=== PATIENT | female | born 1945 | race Caucasian/White ===

== ENCOUNTER 2021-04-16 10:29 | Inpatient (IN) | payer MEDICARE ==
[2021-04-16] MEDS ORDERED: Labetalol HCl 100 MG/20 ML VIAL ONE (10:59)
[2021-04-16] MEDS ORDERED: hydrALAZINE 20 MG/ML VIAL SLOW IVP PRN (11:15)
[2021-04-16 11:19] LABS: #Monocytes 0.4 thou/uL (0.11-0.59); #Neutrophils 5.2 thou/uL (1.40-6.50); %Eosinophils 0.7 % (0.0-10.0); %Lymphocytes 15.3 % (21.0-51.0); %Monocytes 5.9 % (0.0-10.0); %Neutrophils 78.1 % (42.0-75.0); Hemoglobin 14.7 g/dL (12.0-16.0); Mean Corpuscular HGB CONC 33.8 g/dL (32.0-36.0); Mean Corpuscular Volume 91.8 fL (78.0-98.0); Mean Platelet Volume 6.8 fL (7.4-10.4); Platelet Count 374 thou/uL (130-400); Red Blood Cell (RBC) Count 4.73 mill/uL (4.20-5.40); White Blood Cell (WBC) Count 6.7 thou/uL (4.8-10.8)
[2021-04-16 11:32] LABS: ALT (SGPT) 36 U/L (8-55); AST (SGOT) 28 U/L (5-34); Albumin 4.4 g/dL (3.4-4.8); Alkaline Phosphatase 109 U/L (40-110); Anion Gap 15 mmol/L (10-20); BUN (Urea Nitrogen) 13 mg/dL (9.8-20.1); Bilirubin, Total 0.4 mg/dL (0.2-1.2); Calc. Creatinine Clearance 0 mL/min (70-130); Calcium 9.9 mg/dL (7.8-10.44); Carbon Dioxide 23 mmol/L (23-31); Chloride 108 mmol/L (98-107); Globulin 2.7 g/dL (2.4-3.5); Glucose 102 mg/dL (83-110); Protein, Total 7.1 g/dL (5.8-8.1); Sodium 142 mmol/L (136-145)
[2021-04-16] MEDS ORDERED: Calcium Carbonate 500 MG ChewTAB PO PRN (11:44)
[2021-04-16] MEDS ORDERED: Senokot S 8.6-50 MG TAB PO PRN (11:44)
[2021-04-16] MEDS ORDERED: Calcium Carbonate 500 MG ChewTAB ONE (18:55)
[2021-04-16 20:46] VITALS: BMI 26.9
[2021-04-16] MEDS ORDERED: Famotidine 20 MG TAB PO SCH (21:00)
[2021-04-16] MEDS: Atorvastatin Calcium 40 MG TAB PO SCH (21:54)
[2021-04-16] MEDS: Famotidine 20 MG TAB PO SCH (21:55)
[2021-04-16] MEDS: Acetaminophen 325 MG TAB PO PRN (21:55)
[2021-04-17 06:22] LABS: #Eosinphils 0.2 thou/uL (0.0-0.7); #Lymphocytes 1.3 thou/uL (1.20-3.40); #Monocytes 0.7 thou/uL (0.11-0.59); #Neutrophils 5.5 thou/uL (1.40-6.50); %Basophils 0.4 % (0.0-1.0); %Eosinophils 2.4 % (0.0-10.0); %Lymphocytes 16.9 % (21.0-51.0); %Monocytes 8.6 % (0.0-10.0); %Neutrophils 71.7 % (42.0-75.0); Hemoglobin 14.2 g/dL (12.0-16.0); Mean Corpuscular HGB CONC 33.6 g/dL (32.0-36.0); Mean Corpuscular Hemoglobin 30.4 pg (27.0-31.0); Mean Corpuscular Volume 90.4 fL (78.0-98.0); Mean Platelet Volume 8.2 fL (7.4-10.4); Platelet Count 292 thou/uL (130-400); RBC Distribution Width 11.9 % (11.5-14.5); Red Blood Cell (RBC) Count 4.69 mill/uL (4.20-5.40); White Blood Cell (WBC) Count 7.7 thou/uL (4.8-10.8)
[2021-04-17 06:29] LABS: Hemoglobin A1c 5.6 % (4.0-6.0)
[2021-04-17 06:45] LABS: Anion Gap 15 mmol/L (10-20); BUN (Urea Nitrogen) 13 mg/dL (9.8-20.1); Calc. Creatinine Clearance 71 mL/min (70-130); Calcium 9.8 mg/dL (7.8-10.44); Carbon Dioxide 24 mmol/L (23-31); Cardiac Risk 3.9 (Less than 4.5); Chloride 105 mmol/L (98-107); Cholesterol 239 mg/dl (< 200 Desired); Glucose 99 mg/dL (83-110); HDL Cholesterol 61 mg/dL (>60 Neg Risk); LDL Cholesterol, Calculated 160 mg/dL; Magnesium 2.1 mg/dL (1.6-2.6); Potassium 3.4 mmol/L (3.5-5.1); Sodium 141 mmol/L (136-145); Triglycerides 90 mg/dL (Less than 150)
[2021-04-17 07:12] LABS: Thyroid Stimulating Hormone 0.8551 uIU/mL (0.35-4.94)
[2021-04-17] MEDS ORDERED: FLU VACC QS2021-22(65YR UP)/PF 240 MCG/0.7 ML SYRINGE IM ONE (09:00)
[2021-04-17] MEDS ORDERED: Amlodipine 5 MG TAB PO SCH (10:00)
[2021-04-17] MEDS: Enoxaparin Sodium 40 MG/0.4 ML SYRINGE SC SCH (10:16)
[2021-04-17] MEDS: Famotidine 20 MG TAB PO SCH ×2 (12:28→20:09)
[2021-04-17] MEDS: Aspirin 81 mg Enteric Coated Tablet PO SCH (12:28)
[2021-04-17] MEDS ORDERED: Hydrochlorothiazide 25 MG TAB PO SCH (12:45)
[2021-04-17] MEDS ORDERED: Azelastine 137 MCG/Spray 30 ML NS PRN (13:30)
[2021-04-17] MEDS: Ondansetron ODT 4 MG TAB PO PRN (15:56)
[2021-04-17] MEDS: Atorvastatin Calcium 40 MG TAB PO SCH (20:06)
[2021-04-17] MEDS: Acetaminophen 325 MG TAB PO PRN (20:35)
[2021-04-17] MEDS ORDERED: Losartan 25 MG TAB PO SCH (21:00)
[2021-04-17] MEDS ORDERED: Latanoprost 0.005% Ophth Soln 2.5 ml Bottle EA EYE SCH (21:00)
[2021-04-17] MEDS ORDERED: rOPINIRole HCl 0.5 MG TAB PO PRN (21:00)
[2021-04-18 05:57] LABS: #Eosinphils 0.1 thou/uL (0.0-0.7); #Lymphocytes 0.8 thou/uL (1.20-3.40); #Monocytes 0.7 thou/uL (0.11-0.59); #Neutrophils 3.4 thou/uL (1.40-6.50); %Basophils 0.9 % (0.0-1.0); %Eosinophils 1.5 % (0.0-10.0); %Lymphocytes 16.3 % (21.0-51.0); %Monocytes 13.9 % (0.0-10.0); %Neutrophils 67.4 % (42.0-75.0); Hemoglobin 14.4 g/dL (12.0-16.0); Mean Corpuscular HGB CONC 33.3 g/dL (32.0-36.0); Mean Corpuscular Hemoglobin 30.2 pg (27.0-31.0); Mean Corpuscular Volume 90.9 fL (78.0-98.0); Platelet Count 321 thou/uL (130-400); RBC Distribution Width 11.8 % (11.5-14.5); Red Blood Cell (RBC) Count 4.77 mill/uL (4.20-5.40)
[2021-04-18 06:17] LABS: Anion Gap 12 mmol/L (10-20); BUN (Urea Nitrogen) 12 mg/dL (9.8-20.1); Calc. Creatinine Clearance 66 mL/min (70-130); Calcium 9.4 mg/dL (7.8-10.44); Carbon Dioxide 27 mmol/L (23-31); Chloride 101 mmol/L (98-107); Glucose 99 mg/dL (83-110); Potassium 3.3 mmol/L (3.5-5.1); Sodium 137 mmol/L (136-145)
[2021-04-18] MEDS ORDERED: Potassium Chloride 20 MEQ TAB PO SCH (08:00)
[2021-04-18 08:16] VITALS: TEMP 98.1
[2021-04-18] MEDS ORDERED: Hydrochlorothiazide 25 MG TAB PO SCH (09:00)
[2021-04-18] MEDS ORDERED: Amlodipine 5 MG TAB PO SCH (09:00)
[2021-04-18] MEDS ORDERED: Fluticasone Propionate Nasal Spray 16 gm Bottle NASAL SCH (09:00)
[2021-04-18] MEDS: Enoxaparin Sodium 40 MG/0.4 ML SYRINGE SC SCH (09:45)
[2021-04-18] MEDS: Ondansetron ODT 4 MG TAB PO PRN ×2 (09:45→15:15)
[2021-04-18] MEDS: Aspirin 81 mg Enteric Coated Tablet PO SCH (09:46)
[2021-04-18 12:22] VITALS: BP 139/80
[2021-04-18] MEDS: Famotidine 20 MG TAB PO SCH (15:14)
== END 2021-04-18 15:28 | disposition home or self-care (01) | DRG 65 ==
LOC: ERS 10:29 → ERHOLD 11:19 → OBSVTOIN 15:15 → NEURO 20:02
PROVIDERS: ADMIT Internal Medicine; ATTEND Internal Medicine
DX: I63.89 Other cerebral infarction (principal); G81.91 Hemiplegia, unspecified affecting right dominant side; E78.5 Hyperlipidemia, unspecified; I10 Essential (primary) hypertension; G25.81 Restless legs syndrome; H40.9 Unspecified glaucoma; K21.9 Gastro-esophageal reflux disease without esophagitis; J30.9 Allergic rhinitis, unspecified; I16.0 Hypertensive urgency; R20.2 Paresthesia of skin; R29.701 NIHSS score 1; Z90.710 Acquired absence of both cervix and uterus; Z79.899 Other long term (current) drug therapy
CPT/HCPCS: 36415; 70551; 74230; 80048; 80053; 80061; 82607; 82746; 83036; 83735; 84443; 84484; 85025; 93005; 93306; 93880; J1650; Q0162

== ENCOUNTER 2022-12-09 12:47 | Inpatient (IN) | payer MEDICARE ==
[~2022-12-09 12:47] MED LIST: Iopamidol-370 76% 500 ML MDV (1 ML CHARGE) ONE
[2022-12-09 13:23] LABS: #Monocytes 0.6 thou/uL (0.11-0.59); #Neutrophils 7.5 thou/uL (1.40-6.50); %Basophils 0.3 % (0.0-1.0); %Eosinophils 0.3 % (0.0-10.0); %Lymphocytes 14.6 % (21.0-51.0); %Monocytes 6.3 % (0.0-10.0); Hematocrit 44.3 % (36.0-47.0); Hemoglobin 14.2 g/dL (12.0-16.0); Mean Corpuscular HGB CONC 32.1 g/dL (32.0-36.0); Mean Corpuscular Hemoglobin 29.6 pg (27.0-31.0); Mean Corpuscular Volume 92.3 fl (78.0-98.0); Mean Platelet Volume 9.3 fL (7.4-10.4); Platelet Count 311 10x3/uL (130-400); RBC Distribution Width 12.7 % (11.5-14.5); White Blood Cell (WBC) Count 9.6 10x3/uL (4.8-10.8)
[2022-12-09 13:45] LABS: ALT (SGPT) 34 U/L (8-55); AST (SGOT) 26 U/L (5-34); Albumin 4.3 g/dL (3.4-4.8); Alkaline Phosphatase 110 U/L (40-110); Anion Gap 13 mmol/L (10-20); BUN (Urea Nitrogen) 14 mg/dL (9.8-20.1); Bilirubin, Total 0.6 mg/dL (0.2-1.2); Calc. Creatinine Clearance 0 mL/min (70-130); Calcium 9.6 mg/dL (7.8-10.44); Carbon Dioxide 24 mmol/L (23-31); Chloride 106 mmol/L (98-107); Estimated GFR 74; Globulin 2.8 g/dL (2.4-3.5); Glucose 108 mg/dL (83-110); Lipase 36 U/L (8-78); Potassium 3.8 mmol/L (3.5-5.1); Protein, Total 7.1 g/dL (5.8-8.1); Sodium 139 mmol/L (136-145)
[2022-12-09 13:48] LABS: Troponin I Less than 0.010 ng/mL (< 0.028)
[2022-12-09] MEDS ORDERED: Ondansetron ODT 4 MG TAB PO PRN (15:30)
[2022-12-09] MEDS ORDERED: rOPINIRole HCl 0.5 MG TAB PO PRN (15:30)
[2022-12-09] MEDS ORDERED: Aspirin 325 MG TAB ONE (15:41)
[2022-12-09] MEDS ORDERED: Acetaminophen 325 MG TAB PO PRN (16:07)
[2022-12-09] MEDS ORDERED: Ondansetron PF 4 MG/2 ML Vial IVP PRN (16:07)
[2022-12-09] MEDS ORDERED: HYDROcodone/Acetaminophen 5/325 mg Tablet PO PRN (16:22)
[2022-12-09] MEDS ORDERED: Mag-Al 1200 mg/1200 mg/30 ML UDCUP PO PRN (16:22)
[2022-12-09] MEDS ORDERED: Labetalol HCl 100 MG/20 ML VIAL SLOW IVP PRN (17:48)
[2022-12-09 20:43] VITALS: BMI 28.0
[2022-12-09 20:53] LABS: Troponin I Less than 0.010 ng/mL (< 0.028)
[2022-12-09] MEDS: Atorvastatin Calcium 40 MG TAB PO SCH (22:42)
[2022-12-09] MEDS: Latanoprost 0.005% Ophth Soln 2.5 ml Bottle EA EYE SCH (22:42)
[2022-12-10 05:06] LABS: #Basophils 0.1 thou/uL (0.0-0.2); #Eosinphils 0.1 thou/uL (0.0-0.7); #Monocytes 0.6 thou/uL (0.11-0.59); #Neutrophils 3.3 thou/uL (1.40-6.50); %Basophils 0.9 % (0.0-1.0); %Eosinophils 2.1 % (0.0-10.0); %Lymphocytes 29.1 % (21.0-51.0); %Monocytes 9.9 % (0.0-10.0); %Neutrophils 57.5 % (42.0-75.0); Hematocrit 42.2 % (36.0-47.0); Hemoglobin 13.7 g/dL (12.0-16.0); Mean Corpuscular HGB CONC 32.5 g/dL (32.0-36.0); Mean Corpuscular Hemoglobin 29.5 pg (27.0-31.0); Mean Corpuscular Volume 90.8 fl (78.0-98.0); Mean Platelet Volume 9.7 fL (7.4-10.4); Platelet Count 312 10x3/uL (130-400); RBC Distribution Width 12.8 % (11.5-14.5); Red Blood Cell (RBC) Count 4.65 mill/uL (4.20-5.40); White Blood Cell (WBC) Count 5.8 10x3/uL (4.8-10.8)
[2022-12-10 05:31] LABS: Anion Gap 12 mmol/L (10-20); BUN (Urea Nitrogen) 13 mg/dL (9.8-20.1); Calc. Creatinine Clearance 69 mL/min (70-130); Calcium 9.4 mg/dL (7.8-10.44); Carbon Dioxide 23 mmol/L (23-31); Cardiac Risk 2.5 (Less than 4.5); Chloride 106 mmol/L (98-107); Cholesterol 160 mg/dl (< 200 Desired); Estimated GFR 82; Glucose 82 mg/dL (83-110); HDL Cholesterol 65 mg/dL (>60 Neg Risk); LDL Cholesterol, Calculated 83 mg/dL; Potassium 3.6 mmol/L (3.5-5.1); Sodium 137 mmol/L (136-145); Triglycerides 62 mg/dL (Less than 150)
[2022-12-10 06:49] LABS: Bacteria/HPF None Seen HPF (None Seen); Bilirubin Negative (Negative); Blood, Urine Negative (Negative); CAUTI Indications for Culture Dysuria,urgency,freq; Clarity Clear (Clear); Glucose, Urine (Dipstick) Normal (Negative); Ketone, Urine Negative (Negative); Leukocyte Negative Leu/uL (Negative); Nitrite Negative (Negative); Protein, Urine (Dipstick) Negative (Neg-Trace); RBC/HPF 0-3 HPF (0-3); Squamous Epithelial 0-3 HPF (0-3); Urobilinogen Normal mg/dL (Less than 2); WBC/HPF 0-3 HPF (0-3); pH, Urine 6.5 (5.0-9.0)
[2022-12-10 06:51] LABS: Urine Culture Reflex No No
[2022-12-10] MEDS: Aspirin 81 mg Enteric Coated Tablet PO SCH (10:54)
[2022-12-10] MEDS: Fluticasone Propionate Nasal Spray 16 gm Bottle NASAL SCH (10:56)
[2022-12-10] MEDS: Latanoprost 0.005% Ophth Soln 2.5 ml Bottle EA EYE SCH (20:33)
[2022-12-10] MEDS: Atorvastatin Calcium 40 MG TAB PO SCH (20:33)
[2022-12-11] MEDS: Aspirin 81 mg Enteric Coated Tablet PO SCH (10:33)
[2022-12-11] MEDS: Fluticasone Propionate Nasal Spray 16 gm Bottle NASAL SCH (10:33)
[2022-12-11 11:28] VITALS: TEMP 98.4
[2022-12-11 12:46] VITALS: BP 154/89
== END 2022-12-11 15:45 | disposition home or self-care (01) | DRG 312 ==
LOC: ERS 12:47 → ERHOLD 15:47 → 2SE 18:46 → OBSVTOIN 12-11 08:41
PROVIDERS: ADMIT Internal Medicine Critical Care Medicine; ATTEND Family Medicine
DX: I95.1 Orthostatic hypotension (principal); E78.5 Hyperlipidemia, unspecified; I10 Essential (primary) hypertension; G20 Parkinson's disease; Z90.710 Acquired absence of both cervix and uterus; Z86.73 Personal history of transient ischemic attack (TIA), and cerebral infarction without residual deficits
CPT/HCPCS: 36415; 70450; 70551; 71045; 71275; 74174; 76705; 80048; 80053; 80061; 81001; 83690; 84484; 85025; 93005; 93880; 94760; G0378; Q9967